=== PATIENT | female | born 1985 | race Caucasian/White ===

== ENCOUNTER → 2017-12-10 | Outpatient (CLI) | payer OTHER ==
--- NOTE | 2017-12-10 14:59 | 2DMMODE ---
[place] [address] 2 D/M-MODE ECHOCARDIOGRAM Name: JAYA REID Room: [facility]#: [id number] Admission: 12/10/17 Attend Phys: Emmett Schumacher, Discharge: Date of : 83 Date of Service: 12/10/17 1459 Report #: [id number] THIS REPORT FOR: //name// APPROVED REPORT Study performed: 12/10/2017 13:23:54 EXAM: Comprehensive 2D, Doppler, and color-flow Echocardiogram Patient Location: Out-Patient Status: routine BSA: 1.85 HR: 46 bpm BP: 120/70 mmHg Other Information Study Quality: Excellent Indications Chest Pain 2D Dimensions LVEF(%): 60.95 (>50%) IVSd: 9.89 (7-11mm) LVOT Diam: 20.16 (18-24mm) LVDd: 48.70 mm PWd: 9.33 (7-11mm) Ascending Ao: 31.10 (22-36mm) LVDs: 32.78 (25-40mm) Aortic Root: 29.53 mm Moon's LVEF: 60.95 % Volumes Left Atrial Volume (Systole) LA ESV Index: 12.00 mL/m2 Aortic Valve AoV Peak Mushtaq.: 1.46 m/s AO Peak Gr.: 8.53 mmHg LVOT Max P.28 mmHg AO Mean Gr.: 4.64 mmHg LVOT Mean P.84 mmHg LVOT Max V: 1.03 m/s AO V2 VTI: 27.75 cm LVOT Mean V: 0.61 m/s YURI (VTI): 2.39 cm2 LVOT V1 VTI: 20.75 cm Mitral Valve E/A Ratio: 2.03 MV Decel. Time: 203.05 [place] [address] 2 D/M-MODE ECHOCARDIOGRAM Name: JAYA REID Room: [facility]#: [id number] Admission: 12/10/17 Attend Phys: Emmett Schumacher, Discharge: Date of : 83 Date of Service: 12/10/17 1459 Report #: [id number] MV E Max Mushtaq.: 0.83 m/s MV PHT: 58.88 ms MVA (PHT): 3.74 cm2 TDI E/Lateral E': 5.53 E/Medial E': 7.55 Medial E' Mushtaq.: 0.11 m/s Lateral E' Mushtaq.: 0.15 m/s Pulmonary Valve PV Peak Mushtaq.: 1.00 m/s PV Peak Gr.: 3.97 mmHg Tricuspid Valve TR Peak Gr.: 15.39 mmHg RVSP: 20.39 mmHg Left Ventricle The left ventricle is normal size. There is normal LV segmental wall motion. There is normal left ventricular wall thickness. Left ventricular systolic function is normal. The left ventricular ejection fraction is within the normal range. LVEF is 55-60%. The left ventricular diastolic function is normal. Right Ventricle The right ventricle is normal size. The right ventricular systolic function is normal. Atria The left atrium size is normal. The right atrium size is normal. Aortic Valve The aortic valve is normal in structure. No aortic regurgitation is present. There is no aortic valvular stenosis. Mitral Valve The mitral valve is normal in structure. Trace mitral regurgitation. No evidence of mitral valve stenosis. Tricuspid Valve The tricuspid valve is normal in structure. Trace tricuspid regurgitation. The RVSP is __20.4 mmHg. Pulmonic Valve The pulmonary valve is normal in structure. There is no pulmonic [place] [address] 2 D/M-MODE ECHOCARDIOGRAM Name: FRANKLINBELINDA MCGARRYPRATIBHA Liao Room: [facility]#: [id number] Admission: 12/10/17 Attend Phys: Emmett Schumacher, Discharge: Date of : 83 Date of Service: 12/10/17 1459 Report #: [id number] Great Vessels The aortic root is normal in size. IVC is normal in size and collapses with >50% inspiration Pericardium There is no pericardial effusion. <Conclusion> Left ventricular systolic function is normal. The left ventricular ejection fraction is within the normal range. <ELECTRONICALLY SIGNED> By: Emmett Rios MD, FACC 12/10/17 1459 1459 1459 Emmett Rios MD, FACC /INF
== END ==
LOC: M.CRD 13:00
DX: R07.9 Chest pain, unspecified (principal); F99 Mental disorder, not otherwise specified

== ENCOUNTER 2018-09-15 00:55 | Emergency (ER) | payer OTHER ==
[~2018-09-15] VITALS: Ht 177.8 cm; Wt 70.3 kg
[2018-09-15] MEDS ORDERED: PAROXETINE7.5 MG PO (01:06)
[2018-09-15] MEDS ORDERED: CLONAZEPAM 1 MG1 M1 PO ×2 (01:06)
[2018-09-15 01:51] VITALS: BP 127/92
== END 2018-09-15 01:51 | disposition home or self-care (01) ==
LOC: M.ERS 00:55
DX: S61.011A Laceration without foreign body of right thumb without damage to nail, initial encounter (principal); F17.200 Nicotine dependence, unspecified, uncomplicated; W26.8XXA Contact with other sharp object(s), not elsewhere classified, initial encounter; Y93.89 Activity, other specified; Y92.89 Other specified places as the place of occurrence of the external cause; Y99.8 Other external cause status

== ENCOUNTER → 2019-04-28 | Outpatient (CLI) | payer OTHER ==
[~2019-04-28] MED LIST: CARBAMAZEPINE100 M1 PO; CLONAZEPAM 0.50.5 M1 PO; CLONAZEPAM 1 MG1 M1 PO; PAROXETINE7.5 MG PO; PAXIL10 MG PO
== END ==
LOC: M.PC 12:30
DX: M54.81 Occipital neuralgia (principal)

== ENCOUNTER → 2020-08-24 | Outpatient (CLI) | payer OTHER | LOC: M.CT 15:51 | PROVIDERS: ATTEND Registered Nurse Diabetes Educator | DX: N20.0 Calculus of kidney (principal); R19.5 Other fecal abnormalities; N83.202 Unspecified ovarian cyst, left side; N85.8 Other specified noninflammatory disorders of uterus ==